=== PATIENT | female | born 1985 | race Caucasian/White ===

== ENCOUNTER → 2022-04-17 14:16 | Outpatient (BNVA) | payer MEDICAID, SELFPAY | PROVIDERS: Visit Provider Podiatrist Foot & Ankle Surgery | DX: M84.374A Stress fracture, right foot, initial encounter for fracture (principal) | CPT/HCPCS: 73630 ==

== ENCOUNTER 2022-05-14 13:13 | Outpatient (CLI) | payer MEDICAID, SELFPAY ==
--- NOTE | 2022-05-14 13:45 | MR_ITS ---
WS: [id number] MRI OF THE RIGHT FOOT WITHOUT AND WITH GADOLINIUM ENHANCEMENT. INDICATION: RIGHT foot injury TECHNIQUE: Axial PD, axial T2, axial T1, coronal PD, coronal T2 fat sat, sagittal T1, sagittal STIR, and multiplanar post gadolinium imaging was obtained with fat saturation technique. FINDINGS: Normal bone marrow signal in the base of 5th metatarsal. Normal bone marrow signal in the c uboid. No edema or avascular necrosis. Normal cuneiforms. Normal navicular. Proximal metatarsals are normal in appearance. . Normal bone marrow signal in the talus and calcaneus. Normal talar dome. Distal Achilles is normal in appearance. Normal peroneal tendon sheaths. Normal peroneus longus and brevis. Normal bone marrow si gnal in the medial and lateral malleolus. Normal deltoid ligament. Normal ATF. Normal extensor and flexor compartment tendons. No abnormal gadolinium enhancement. Normal visualized soft tissues. Normal plantar aponeurosis. No other suspicious findings MR/MR foot RT wo/w con [id number] IMPRESSION: 1. Normal bone marrow signal in the cuboid. 2. Normal bone marrow signal in the tarsal bones. 3. Talus and calcaneus are normal in appearance. No acute fractures. 4. Tiny amount of subchondral cystic change involving the undersurface of the lateral malleolus. Medial and lateral malleolus otherwise normal. 5. Normal peroneal tendon sheath. 6. Distal Achilles is normal in appearance. 7. No other suspicious findings.
[2022-05-14] MEDS: gadobenate dimeglumine 20 mL vial IV (14:26)
== END 2022-05-14 13:14 | disposition home or self-care (01) ==
LOC: RAD 13:15
PROVIDERS: Visit Provider Podiatrist Foot & Ankle Surgery
DX: S99.921A Unspecified injury of right foot, initial encounter (principal); X58.XXXA Exposure to other specified factors, initial encounter
CPT/HCPCS: 73720; A9577

== ENCOUNTER 2022-05-15 10:48 | Outpatient (CLI) | payer MEDICAID, SELFPAY ==
--- NOTE | 2022-05-15 11:00 | MR_ITS ---
WS: [id number] MRI OF THE RIGHT FOOT WITHOUT AND WITH GADOLINIUM ENHANCEMENT. INDICATION: RIGHT ankle injury TECHNIQUE: Sagittal T1, sagittal STIR, axial T2, axial PD, coronal PD, coronal T2 fat sat, axial T1 a nd multiplanar post gadolinium imaging with fat saturation technique. FINDINGS: Normal metatarsals. Normal tarsal metatarsal alignment. Normal bone marrow signal in the 1s t through 5th metatarsals. No acute fractures. Proximal and distal phalanges are normal in appearance. Normal tarsal bones. Normal navicular. Normal talonavicular articulation. Normal visualized soft tissues. Normal cuboid. Normal cuneiforms. Distal peroneal longus and brevis appear normal. Normal visualized extensor and flexor compartment te ndons. No abnormal gadolinium enhancement. Normal midfoot and forefoot plantar soft tissues. Normal d orsal soft tissues. No other suspicious findings. MR/MR foot RT wo/w con [id number] IMPRESSION: 1. No suspicious RIGHT foot findings. 2. Normal bone marrow signal in the tarsal and metatarsal bones. 3. Normal talonavicular articulation. 4. Cuboid and cuneiforms are normal in appearance. 5. No other suspicious findings.
[2022-05-15] MEDS: gadobenate dimeglumine 20 mL vial IV (11:54)
== END 2022-05-15 10:49 | disposition home or self-care (01) ==
LOC: RAD 10:51
PROVIDERS: PCP Family Medicine; Visit Provider Podiatrist Foot & Ankle Surgery
DX: S99.911A Unspecified injury of right ankle, initial encounter (principal); X58.XXXA Exposure to other specified factors, initial encounter
CPT/HCPCS: 73720; A9577

== ENCOUNTER 2022-07-12 07:55 | Outpatient (CLI) | payer MEDICAID, SELFPAY ==
--- NOTE | 2022-07-12 08:02 | MR_ITS ---
WS: [id number] EXAMINATION: MR shoulder RT wo con* [id number] ORDER DATE: 07/12/2022 8:20 AM COMPARISON: None. HISTORY: R ROTATOR CUFF TENDINOPATHY CONTRAST: None. TECHNIQUE: Axial T2 STAR, coronal proton density fat sat, sagittal T2 fat sat, sagittal proton densit y fat sat, axial proton density fat sat, coronal T2 fat sat, and coronal T1 performed. After contrast , axial T1 fat sat, coronal T1 fat sat, and sagittal T1 fat sat were performed. FINDINGS: Mild degenerative arthritis AC joint with mild fluid and edema. Mild downsloping acromion with subacr omial spurring. Impingement on the distal supraspinatus. Distal supraspinatus is intact. Normal infraspinatus. Normal teres minor. Subscapularis tendon appear s intact. Normal biceps tendon in the bicipital groove. Normal biceps labral anchor. Intra-articular biceps tendon appears intact with mild tendinopathy and increased signal abnormality. MR/MR shoulder RT wo con* [id number] IMPRESSION: 1. Mild degenerative arthritis AC joint with mild fluid and edema. 2. Mild downsloping acromion with slight impingement on the distal supraspinat us. Small amount of subacromial/subdeltoid fluid. Distal supraspinatus appears intact. 3. Rotator cuff is otherwise normal in appearance. 4. Intra-articular biceps tendon appears intact. 5. Small amount signal abnormality involving the intra-articular biceps tendon compatible with tendinopathy. 6. No other suspicious findings.
== END 2022-07-12 07:56 | disposition home or self-care (01) ==
LOC: RAD 07:55
PROVIDERS: PCP Family Medicine; Visit Provider Family Medicine
DX: M19.011 Primary osteoarthritis, right shoulder (principal); M67.813 Other specified disorders of tendon, right shoulder
CPT/HCPCS: 73221

== ENCOUNTER 2022-08-11 15:15 | Inpatient (IN) | payer MEDICAID, SELFPAY ==
[2022-08-11] VITALS (69 sets, daily range): BP systolic 114–173; BP diastolic 71–106; PULSE 74–95; RESP 12–25; TEMP 36.8; O2SAT 96–100; BMI 37.8
[2022-08-11 15:25] LABS: Glucose Point of Care 94 mg/dL (70-110)
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
--- NOTE | 2022-08-11 15:35 | ECG_ITS ---
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 Measurements Intervals [place] Rate: 80 P: 28 MD: 109 QRS: 1 QRSD: 92 T: 15 QT: 359 QTc: 415 Interpretive Statements SINUS RHYTHM WITH SHORT MD INTERVAL VOLTAGE CRITERIA FOR LVH [MEETS CRITERIA IN ONE OF: R(aVL), S(V1), R(V5), R(V5/V6)+S(V1)] No previous ECG available for comparison Electronically Signed On 08-12-2022 11:50:22 CDT by Carlos Florentino M.D. [email or web address]
--- NOTE | 2022-08-11 15:35 | XRR_ITS ---
PROCEDURE INFORMATION: Exam: XR Chest Exam date and time: 08/11/2022 4:01 PM Age: 37 years old Clinical indication: Other: Overdose TECHNIQUE: Imaging protocol: Radiologic exam of the chest. Views: 1 view. Other technique: Frontal portable semiupright view of the chest. COMPARISON: MR shoulder RT wo con* [id number] 07/12/2022 8:15 AM FINDINGS: Tubes, catheters and devices: EKG leads are present overlying the chest. Lungs: The lungs are clear bilaterally. The pulmonary vasculature is normal. Pleural spaces: No pleural effusion. No pneumothorax. Heart/Mediastinum: The heart is normal in size and contour. Bones/joints: No acute chest wall abnormality identified. XR/XR chest 1V portable [id number] IMPRESSION: No acute cardiopulmonary abnormality identified.
[2022-08-11 16:12] LABS: Basophils % 0.3 %; Eosinophils # 0.1 10^3/uL (0.0-0.8); Eosinophils % 1.1 %; Hematocrit 41.7 % (37.0-47.0); Hemoglobin 13.7 g/dL (11.5-15.3); Lymphocytes # 2.1 10^3/uL (0.8-4.8); Lymphocytes % 19.7 %; Mean Corpuscular HGB Conc 32.9 g/dL (30.0-36.0); Mean Corpuscular Hemoglobin 29.5 pg (28.0-34.0); Mean Corpuscular Volume 89.9 fl (81-99); Mean Platelet Volume 10.3 fL (7.4-10.4); Monocytes # 0.5 10^3/uL (0.2-0.9); Monocytes % 5.1 %; Neutrophils # 7.68 10^3/uL (1.8-7.7); Neutrophils % 73.4 %; Nucleated Red Blood Cells % 0 %; Platelet Count 298 10^3/cmm (130-400); Red Blood Count 4.64 10^6/uL (4.1-5.3); Red Cell Distribution Width 11.9 % (12.1-15.1); White Blood Count 10.5 10^3/uL (4.0-10.0)
[2022-08-11 16:13] LABS: Add Urine Microscopic? NO; Charge for UA Resulting for Rev
[2022-08-11 16:21] LABS: Urine Appearance Clear (CLEAR); Urine Color Yellow (Yellow); pH Urine 6.5 (5-7)
[2022-08-11 16:22] LABS: Bilirubin Urine Neg (Negative); Blood Urine Neg (Negative); Glucose Urine UA Norm (Normal); Ketones Urine Negative (Negative); Leukocyte Esterase Urine Negative (Negative); Nitrate Urine Negative (Negative); Protein Urine Neg (Negative); Specific Gravity, Urine 1.005 (1.005-1.030); Urobilinogen Urine Norm (Negative)
[2022-08-11 16:24] LABS: HCG Qualitative Urine. Negative (Negative)
[2022-08-11 16:28] LABS: Amphetamines Screen Urine Negative (Negative); Barbiturates Screen Urine Positive (Negative); Benzodiazepines Screen Urine Negative (Negative); Cocaine Screen Urine Negative (Negative); Opiate Screen Urine Negative (Negative); PCP Screen Urine Negative (Negative); THC Screen Urine Negative (Negative)
[2022-08-11 16:45] LABS: Alanine Aminotransferase 44 U/L (0-33); Alkaline Phosphatase 85 U/L (35-105); Anion Gap 15.9 (5-19); Aspartate Amino Transferase 31 U/L (0-32); Blood Urea Nitrogen 8 mg/dL (6-20); Calcium 9.2 mg/dL (8.5-10.5); Carbon Dioxide 26 mmol/L (22-29); Chloride 99 mmol/L (98-107); Globulin 3.6 g/dL (1.3-4.6); Glomerular Filtration Rate 113.8 mL/min (90-130); Glucose 89 mg/dL (65-115); Osmolality Calculated 282 mOsm/kg (285-295); Potassium 3.9 mmol/L (3.5-5.1); Sodium 137 mmol/L (136-145); Thyroid Stimulating Hormone 5.05 uIU/mL (0.27-4.20); Total Bilirubin 0.4 mg/dL (0.15-1.2); Total Protein 7.6 g/dL (6.6-8.7)
--- NOTE | 2022-08-11 16:57 | PC.PHAR ---
PT CAME IN WITH MEDICATION BOTTLES- MOST MEDICATIONS HAVE DUPLICATES MOST ARE 1 TO 2 YEARS OLD ALONG WITH CURRENT FILLS IN [facility]
[2022-08-11 16:58] LABS: Acetaminophen < 5.0 ug/mL (10-30); Alcohol Level < 10 mg/dL (0-10); Salicylate < 0.3 mg/dL (3-10)
[2022-08-11] MEDS: sodium chloride 0.9% 1,000 ML 999 ML IV (16:58)
--- NOTE | 2022-08-11 18:07 | CTR_ITS ---
PROCEDURE INFORMATION: Exam: CT Head Without Contrast Exam date and time: 08/11/2022 6:15 PM Age: 37 years old Clinical indication: Ms, drug overdose, headaches, blurry vision TECHNIQUE: Imaging protocol: Computed tomography of the head without contrast. Radiation optimization: All CT scans at this facility use at least one of these dose optimization techniques: automated exposure control; mA and/or kV adjustment per patient size (includes targeted exams where dose is matched to clinical indication); or iterative reconstruction. REPORTING DATA: Count of CT and Cardiac NM exams in prior 12 months: This patient has received 0 known CTs and 0 known cardiac nuclear medicine studies in the 12 months prior to the current study. COMPARISON: No relevant prior studies available. RADIATION DOSE METRICS: Total DLP (mGy-cm): 1137.38 FINDINGS: Brain: Normal. No hemorrhage. Unremarkable white matter. No mass effect. Cerebral ventricles: No ventriculomegaly. Paranasal sinuses: Visualized sinuses are unremarkable. No fluid levels. Mastoid air cells: Visualized mastoid air cells are well aerated. Bones/joints: Unremarkable. No acute fracture. Soft tissues: Unremarkable. CT/CT head wo con* [id number] IMPRESSION: No acute intracranial abnormality.
--- NOTE | 2022-08-11 18:09 | P.HP_ITS ---
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 She says she took mecobalamin, But it could be methocarbamol she is not sure what it is called. She tells me that she has been very anxious recently, she is not sure how much pills she took, she denies any suicidal ideation, homicidal ideation, denies seeing things are not there. She tells me that she has been going through a lot, she has 2 kids, 12 and 13, she lives with her parents, and attempt to feel better she took a handful of pills. She tells me that she deals with chronic symptoms of headaches, blurry vision, fatigue, malaise, diffuse pain, she is going to see an MS specialist in September in [place] she thinks is the cause of all of her problems. She denies overdosing on aspirin, statin, Celebrex, levothyroxine, metoprolol, Topamax, trazodone.. She told the ER nurse that she started hearing voices in her head, she is tired of all the pain, she want to make it stop. Currently alert awake, following all commands Review of Systems Const: Denies: fever(s) Eyes: Reports: change in vision and blurry vision Card: Denies: chest pain Resp: Denies: dyspnea GI: Denies: abdominal pain : Denies: flank pain or difficulty voiding Neuro: Reports: headache(s) Psych: Reports: anxiety Medications/Allergies Home Medications Medication Instructions Recorded Confirmed Last Taken Type aspirin 81 mg tablet,delayed 81 mg PO DAILY 06/28/22 08/11/22 08/11/22 History release atorvastatin 20 mg tablet 20 mg PO DAILY 06/28/22 08/11/22 08/11/22 History celecoxib 200 mg capsule (Celebrex) 200 mg PO BID 06/28/22 08/11/22 08/11/22 History ergocalciferol (vitamin D2) 1,250 1,250 mcg PO DAILY 06/28/22 08/11/22 08/11/22 History mcg (50,000 unit) capsule gabapentin 300 mg capsule 300 mg PO TID 06/28/22 08/11/22 08/11/22 History levothyroxine 88 mcg capsule 88 mcg PO DAILY 06/28/22 08/11/22 08/11/22 History mecobalamin (vitamin B12) 1,000 1,000 mcg PO DAILY 06/28/22 08/11/22 08/11/22 History mcg chewable tablet metoprolol tartrate 25 mg tablet 25 mg PO DAILY 06/28/22 08/11/22 08/11/22 History ondansetron HCl 4 mg tablet 4 mg PO Q8H 06/28/22 08/11/22 08/11/22 History sucralfate 1 gram tablet 1 g PO BID 06/28/22 08/11/22 08/11/22 History topiramate 50 mg tablet 50 mg PO BID pain 30 days #60 tabs 06/28/22 08/11/22 08/11/22 Rx trazodone 50 mg PO QPM 06/28/22 08/11/22 08/10/22 History Allergies Allergy/AdvReac Type Severity Reaction Status Date / Time glatiramer (copolymer 1) Allergy Severe ALGY-Anaphy Verified 07/30/22 11:15 [From Copaxone] laxis albumin human Allergy Mild ALGY-Swell Verified 07/30/22 11:15 [From Rebif (with albumin)] Lip/Tongue/Throat ibuprofen Allergy Mild ALGY-Swell Verified 07/30/22 11:15 Lip/Tongue/Throat interferon beta-1a Allergy Mild ALGY-Swell Verified 07/30/22 11:15 [From Rebif (with albumin)] Lip/Tongue/Throat PFSH Acute PFSH: Medical History (Updated 08/11/22 @ 18:15 by Venancio Ramirez MD) History of hypothyroidism History of multiple sclerosis Surgical History (Updated 08/11/22 @ 18:14 by Venancio Ramirez MD) History of hysterectomy Family History (Updated 08/11/22 @ 18:14 by Venancio Ramirez MD) Other Diabetes Hypertension Social History Smoking and tobacco status: never smoked Second hand smoke exposure: No Alcohol intake: current Alcohol intake frequency: holidays/special occasions only Alcohol type: beer, wine and hard liquor Vitals/I&O/Wt Last Vital Signs Pulse 78 08/11/22 15:27 Resp 13 08/11/22 15:27 BP 173/106 08/11/22 15:27 Pulse Ox 99 08/11/22 15:27 O2 Del Method Room Air 08/11/22 15:27 Weight last 48 hrs Weight 90.718 kg Physical Exam Const: COMMON NORMALS: no acute distress and patient oriented x3 HENMT: COMMON NORMALS: normocephalic HEAD & SCALP: normocephalic Eye: COMMON NORMALS: Equal, round and reactive pupils present and EOMs intact bilaterally Neck/C-Spine: COMMON NORMALS: no JVD Lymph: LYMPHATIC: no lymphadenopathy noted Resp: COMMON NORMALS: normal respiratory effort, No retractions, No use of accessory muscles and clear to auscultation bilaterally AUSCULTATION: clear to auscultation bilaterally Cardio: COMMON NORMALS: regular rate, regular rhythm, S1 normal heart sound present and S2 normal heart sound present RATE: regular rate RHYTHM: regular rhythm HEART SOUNDS: S1 normal heart sound present and S2 normal heart sound present GI: COMMON NORMALS: Normal to inspection, nondistended, normoactive bowel sounds present, Soft to palpation, non-tender, No hepatosplenomegaly present, no masses and no bruits PALPATION: Yes Soft to palpation : COMMON NORMALS: Yes no CVA tenderness Extremity: COMMON NORMALS: no calf tenderness and no pedal edema Neuro: COMMON NORMALS: patient oriented x3, CN's II-XII intact bilaterally, moves all extremities and no focal motor deficits Psych: COMMON NORMALS: mental status grossly normal Data 08/11/22 15:52 08/11/22 15:52 A&P Assessment and plan (1) Drug overdose: Plan Drug overdose -96-hour hold placed in the emergency room -Concerns for suicidal attempt -She is in a lot of stress, in a lot of pain, is very anxious, is quite teary during my discussion -But she denies any suicidal ideation, denies any homicidal ideation -We will resume home levothyroxine, resume metoprolol -Resume aspirin, statin -Hold Celebrex, hold trazodone hold Topamax -Monitor telemetry monitoring -Monitor respiratory status -Monitor mentation -CT head -Full code -Lovenox for DVT prophylaxis Attestations Medical Necessity Statement*: Patient requires hospitalization, for drug overdose, outpatient with observation Coding Level of Care Code Acute Code for Chg Fwd Diagnoses Drug overdose T50.901A
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
[2022-08-11 18:31] LABS: Creatine Phosphokinase 37 U/L (26-192)
[2022-08-11 19:36] LABS: Chol HDL Ratio 7.61 mg/dL (0.0-4.40); Cholesterol 236 mg/dL (0-200); HDL Cholesterol 31 mg/dL (60-100); LDL Cholesterol Calculated 143 mg/dL (50-129); LDL HDL Ratio 4.61 RATIO (0.00-3.22); Triglycerides 311 mg/dL (0-150)
[2022-08-11] MEDS: enoxaparin 40 mg/0.4 mL Syringe SUBCUT (20:10)
[2022-08-11] MEDS: sodium chloride 0.9% 1,000 ML 75 ML IV (20:11)
[2022-08-11 22:20] LABS: Estmated Average Glucose 100; Hemoglobin A1C 5.1 % (4.0-6.0)
[2022-08-12] VITALS (132 sets, daily range): BP systolic 92–146; BP diastolic 63–92; PULSE 64–92; RESP 5–29; TEMP 36.7–36.9; O2SAT 94–100
[2022-08-12 05:58] LABS: Basophils % 0.4 %; Eosinophils # 0.2 10^3/uL (0.0-0.8); Eosinophils % 1.9 %; Hematocrit 38.9 % (37.0-47.0); Hemoglobin 12.7 g/dL (11.5-15.3); Lymphocytes # 3.7 10^3/uL (0.8-4.8); Lymphocytes % 43.5 %; Mean Corpuscular HGB Conc 32.6 g/dL (30.0-36.0); Mean Corpuscular Hemoglobin 29.4 pg (28.0-34.0); Mean Platelet Volume 10.5 fL (7.4-10.4); Monocytes # 0.6 10^3/uL (0.2-0.9); Monocytes % 7.1 %; Neutrophils # 3.95 10^3/uL (1.8-7.7); Neutrophils % 46.9 %; Nucleated Red Blood Cells % 0 %; Platelet Count 258 10^3/cmm (130-400); Red Blood Count 4.32 10^6/uL (4.1-5.3); Red Cell Distribution Width 11.7 % (12.1-15.1); White Blood Count 8.4 10^3/uL (4.0-10.0)
[2022-08-12 06:24] LABS: Alanine Aminotransferase 36 U/L (0-33); Albumin Level 3.5 g/dL (3.5-5.2); Alkaline Phosphatase 72 U/L (35-105); Anion Gap 12.9 (5-19); Aspartate Amino Transferase 24 U/L (0-32); Blood Urea Nitrogen 7 mg/dL (6-20); Calcium 8.3 mg/dL (8.5-10.5); Carbon Dioxide 25 mmol/L (22-29); Chloride 104 mmol/L (98-107); Globulin 2.8 g/dL (1.3-4.6); Glomerular Filtration Rate 113.8 mL/min (90-130); Glucose 84 mg/dL (65-115); Osmolality Calculated 283 mOsm/kg (285-295); Phosphorus 3.9 mg/dL (2.5-4.5); Potassium 3.9 mmol/L (3.5-5.1); Sodium 138 mmol/L (136-145); Total Bilirubin 0.3 mg/dL (0.15-1.2); Total Protein 6.3 g/dL (6.6-8.7)
[2022-08-12] MEDS: metoprolol tartrate 25 mg Tablet PO (08:15)
[2022-08-12] MEDS: levothyroxine 88 mcg Tablet PO (08:15)
[2022-08-12] MEDS: atorvastatin 40 mg Tablet 20 MG PO (08:15)
[2022-08-12] MEDS: sucralfate 1 gm Tablet PO ×2 (08:15→17:31)
[2022-08-12] MEDS: aspirin 81 mg EC Tablet PO (08:15)
[2022-08-12] MEDS: sodium chloride 0.9% 1,000 ML 75 ML IV (08:17)
--- NOTE | 2022-08-12 09:29 | ECG_ITS ---
[facility] Test Date: 2022-08-12 Pat Name: Diane Castellanos Department: Room: [facility] Gender: Female Physician Assistant Psychiatry: : 1985 Requested By: Venancio Ramirez Order Number: [id number] Elizabeth MD: Carlos Florentino M.D. Measurements Intervals [place] Rate: 67 P: 11 MT: 144 QRS: -4 QRSD: 94 T: 16 QT: 390 QTc: 414 Interpretive Statements SINUS RHYTHM MODERATE VOLTAGE CRITERIA FOR LVH, CONSIDER NORMAL VARIANT [MEETS CRITERIA IN ONE OF: R(aVL), S(V1), R(V5), R(V5/V6)+S(V1)] Compared to ECG 08/11/2022 15:58:13 Short MT interval no longer present Electronically Signed On 08-12-2022 11:48:55 CDT by Carlos Florentino M.D. [id number]
--- NOTE | 2022-08-12 13:57 | PC.NURSE ---
Report called to NPU. Patient to go to room 154-2. Patient belongings and home meds to go with patient. Patient transported to NPU with Security and patient voting machine repairer.
--- NOTE | 2022-08-12 14:45 | P.PN_ITS ---
Subjective Subjective: Patient was seen this morning, she has no complaints, denies chest pain, denies any shortness of breath, denies any suicidal ideation, denies homicidal ideation Vitals/I&O/Wt Last Vital Signs Temp 98.0 F 08/12/22 07:30 Pulse 84 08/12/22 14:08 Resp 12 08/12/22 13:40 BP 142/90 08/12/22 13:40 Pulse Ox 97 08/12/22 13:40 O2 Del Method Room Air 08/12/22 13:40 08/11/22 08/12/22 08/12/22 22:59 06:59 14:59 Intake Total 1300 / 1300 400 / 1700 1267.5 / 1267.5 Balance 1300 / 1300 400 / 1700 1267.5 / 1267.5 Weight last 48 hrs Weight 90.718 kg Physical Exam Const: COMMON NORMALS: no acute distress and patient oriented x3 Resp: COMMON NORMALS: normal respiratory effort, No retractions, No use of accessory muscles and clear to auscultation bilaterally AUSCULTATION: clear to auscultation bilaterally Cardio: COMMON NORMALS: regular rate, regular rhythm, S1 normal heart sound present and S2 normal heart sound present RATE: regular rate RHYTHM: regular rhythm HEART SOUNDS: S1 normal heart sound present and S2 normal heart sound present GI: COMMON NORMALS: Normal to inspection, nondistended, normoactive bowel sounds present and non-tender Extremity: COMMON NORMALS: no pedal edema Neuro: COMMON NORMALS: patient oriented x3 Psych: COMMON NORMALS: mental status grossly normal Data 08/12/22 04:58 08/12/22 04:58 A&P Assessment and plan (1) Drug overdose: Plan Drug overdose -96-hour hold placed in the emergency room -Concerns for suicidal attempt -She is in a lot of stress, in a lot of pain, is very anxious, is quite teary during my discussion -But she denies any suicidal ideation, denies any homicidal ideation -We will resume home levothyroxine, resume metoprolol -Resume aspirin, statin -Hold Celebrex, hold Topamax -Can move to neuropsychiatric unit -Monitor respiratory status -Monitor mentation -Full code -Lovenox for DVT prophylaxis Spoke to psychiatrist, spoke to nursing staff Attestations Medical Necessity Statement*: Patient requires hospitalization for drug overdose, moving to neuropsychiatric unit Diagnoses Drug overdose T50.901A
--- NOTE | 2022-08-12 15:34 | PC.NURSE ---
medication arrived to unit with pt and her belongings accompanied by security an entertainment musician. medication in [facility] clear bag secured with tape and saftey red tape. medication list with pt name inside with medication. placing in medication room [facility].
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
[2022-08-12] MEDS: hyDROXYzine 25 mg Capsule 50 MG PO (22:47)
[2022-08-12] MEDS: gabapentin 300 mg Capsule PO (22:47)
[2022-08-12] MEDS: trazodone 50 mg Tablet PO (22:47)
[2022-08-13] MEDS: aspirin 81 mg EC Tablet PO (09:55)
[2022-08-13] MEDS: sucralfate 1 gm Tablet PO ×2 (09:55→18:31)
[2022-08-13] MEDS: escitalopram 10 mg Tablet PO (09:55)
[2022-08-13] MEDS: metoprolol tartrate 25 mg Tablet PO (09:55)
[2022-08-13] MEDS: levothyroxine 88 mcg Tablet PO (09:55)
[2022-08-13] MEDS: atorvastatin 40 mg Tablet 20 MG PO (09:56)
[2022-08-13] MEDS: gabapentin 300 mg Capsule PO ×3 (09:58→20:40)
[2022-08-13] MEDS: artificial tears Op Soln 15 mL Btl 1 DROP EYE-BOTH ×3 (10:02→21:16)
--- NOTE | 2022-08-13 10:05 | PC.NURSE ---
Pt reports usually takes her Vit B 12 by injection on Tuesdays. Oral declined at this time. Will adjust the order after clarifying with MD.
[2022-08-13 14:00] VITALS: BP 134/77; PULSE 92; RESP 20; TEMP 37.1; O2SAT 98
--- NOTE | 2022-08-13 17:51 | W.PM.NPUPNS ---
Subjective NPU Subjective: Patient is a 37-year-old white female admitted after an overdose on multiple medications with increased depression and suicidal thoughts. Patient had reported no suicidal thoughts at this time. She had reported feeling overwhelmed and was struck by her mother's calcinosis when stating that patient did not need to moved to [place] when her parents who she had been living with at plan to moved there. She had reported chronically struggling with stress and states that she had been in therapy before including cognitive behavioral therapy but stated that the continued negative thoughts were overwhelming to her and reported that she needed more help with managing her mood and managing her medical illness. She reported being overwhelmed and upset that she was unable to work due to her MS. She had described having some sensitivity to medications. She reported some intense feelings of hopelessness just prior to taking the pills but stated that she was motivated to get better. She reported having difficulties with sleep continuity disruption as well as difficulties with managing her chronic worry. Mental Status Exam MSE Comments: Patient is a casually dressed white female who was pleasant and cooperative on interview. She appeared in mild distress. Her gait was adequate her hygiene was adequate. There was no evidence of any abnormal involuntary motor movements tics or tremors appreciated. Her speech was normal in regards to rate rhythm and prosody. Her thought process was linear logical and goal-directed. Her thought content showed no evidence of active homicidal or suicidal ideation although she did report that she had taken the pills out of frustration with a concern of not wanting to be around anymore. There was no clear evidence of delusional thinking. She did not appear to be responding to internal stimuli. She was alert and oriented person place and time. Her attention was fair. Her insight was poor. Her judgment was poor. Her impulse control appeared guarded and limited at this time. Her mood was described as depressed. Her affect was anxious and restricted in range. Vitals/I&O/Wt Last Vital Signs Temp 98.1 F 08/12/22 19:54 Pulse 82 08/12/22 19:54 Resp 18 08/12/22 19:54 BP 124/81 08/12/22 19:54 Pulse Ox 97 08/12/22 19:54 O2 Del Method Room Air 08/12/22 19:54 Weight last 48 hrs Weight 90.718 kg Data NPU 08/12/22 04:58 08/12/22 04:58 A&P Assessment and plan (1) Major depressive disorder: (2) Suicide attempt by multiple drug overdose: Plan Patient is a 37-year-old white female no previous history of inpatient hospitalization admitted with worsening depression with significant medical problems that are chronic after an overdose. The patient was agreeable to consideration for medications to target depression. 1.? ?Engage? patient in individual ,milieu, and group therapy ?2. ? We will attempt to gather collateral information from previous providers-request records. Continue Lexapro 10mg daily to target depression and anxiety. Trazodone at night for insomnia. ?3. ? TO-15 minute checks on the unit. ?4.? Recommend sober living treatment at the highest level of care to which the patient is willing to commit. Involuntary Hold Information 96 Hour Hold: 96 Hour Involuntary Admission: Yes 96 Hour Hold Ending Date: 08/17/22 96 Hour Hold Ending Time: 00:01 Attestations NPU Medical Necessity Statement*: Inpatient hospitalization is medically necessary and deemed to be the clinically appropriate intervention at this time. We will monitor and make changes to medications as indicated. Her likely length of stay is 5 to 7 days. Coding Level of Care Code Acute Code for [facility] Fwd Diagnoses Major depressive disorder F32.9 Suicide attempt by multiple drug overdose T50.912A
[2022-08-13] MEDS: trazodone 50 mg Tablet PO (20:41)
[2022-08-13] MEDS: hyDROXYzine 25 mg Capsule 50 MG PO (20:43)
[2022-08-13 21:05] VITALS: BP 117/79; PULSE 90; RESP 20; TEMP 37.1; O2SAT 93
[2022-08-14 06:00] VITALS: BP 102/56; PULSE 80; RESP 18; TEMP 36.4; O2SAT 97
[2022-08-14] MEDS: artificial tears Op Soln 15 mL Btl 1 DROP EYE-BOTH ×3 (07:05→19:39)
[2022-08-14] MEDS: gabapentin 300 mg Capsule PO ×3 (09:13→21:12)
[2022-08-14] MEDS: levothyroxine 88 mcg Tablet PO (09:13)
[2022-08-14] MEDS: atorvastatin 40 mg Tablet 20 MG PO (09:13)
[2022-08-14] MEDS: aspirin 81 mg EC Tablet PO (09:13)
[2022-08-14] MEDS: sucralfate 1 gm Tablet PO ×2 (09:14→18:06)
[2022-08-14] MEDS: escitalopram 10 mg Tablet PO (09:15)
[2022-08-14] MEDS: metoprolol tartrate 25 mg Tablet PO (09:18)
[2022-08-14 09:19] VITALS: BP 129/88; PULSE 103
[2022-08-14] MEDS: acetaminophen 325 mg Tablet 650 MG PO (12:10)
[2022-08-14 14:00] VITALS: BP 118/74; PULSE 88; RESP 16; TEMP 36.9; O2SAT 98
--- NOTE | 2022-08-14 18:29 | P.NPUPN_ITS ---
Subjective NPU Subjective: Patient is a 37-year-old white female admitted after an overdose on multiple medications with increased depression and suicidal thoughts. She reported having less suicidal thoughts at this time. She had stated that she was likely to move to [place] with the rest of her family in December. She had reported that she needed further aid in managing her medical problems as well as her mental health issues. She had reported struggles with coping with depression and anxiety. She had reported no side effects initially from her Lexapro. Mental Status Exam MSE Comments: Patient is a casually dressed white female who was pleasant and cooperative on interview. She appeared in mild distress. Her gait was adequate her hygiene was adequate. There was no evidence of any abnormal involuntary motor movements tics or tremors appreciated. Her mood was described as better. Her affect was brighter today and mood-congruent. Her speech was normal in regards to rate rhythm and prosody. Her thought process was linear logical and goal-directed. Her thought content showed no evidence of active homicidal or suicidal ideation There was no clear evidence of delusional thinking. She did not appear to be responding to internal stimuli. She was alert and oriented person place and time. Her attention was fair. Her insight was poor. Her judgment was poor. Her impulse control appeared guarded and limited at this time. Vitals/I&O/Wt Last Vital Signs Temp 98.5 F 08/14/22 14:00 Pulse 88 08/14/22 14:00 Resp 16 08/14/22 14:00 BP 118/74 08/14/22 14:00 Pulse Ox 98 08/14/22 14:00 O2 Del Method Room Air 08/14/22 14:00 Data NPU 08/12/22 04:58 08/12/22 04:58 A&P Assessment and plan (1) Major depressive disorder: (2) Suicide attempt by multiple drug overdose: Plan Patient is a 37-year-old white female no previous history of inpatient hospitalization admitted with worsening depression with significant medical problems that are chronic after an overdose. The patient was agreeable to consideration for medications to target depression. 1.? ?Engage? patient in individual ,milieu, and group therapy ?2. ? We will attempt to gather collateral information from previous providers- request records. Continue Lexapro 10mg daily to target depression and anxiety. Trazodone at night for insomnia. ?3. ? TO-15 minute checks on the unit. ?4.? Recommend sober living treatment at the highest level of care to which the patient is willing to commit. Involuntary Hold Information 96 Hour Hold: 96 Hour Involuntary Admission: Yes 96 Hour Hold Ending Date: 08/17/22 96 Hour Hold Ending Time: 00:01 Attestations NPU Medical Necessity Statement*: Inpatient hospitalization is medically necessary and deemed to be the clinically appropriate intervention at this time. We will monitor and make changes to medications as indicated. Her likely length of stay is 3-5 days. Coding Level of Care Code Acute Code for g Fwd Diagnoses Major depressive disorder F32.9 Suicide attempt by multiple drug overdose T50.912A
[2022-08-14] MEDS: trazodone 100 mg Tablet PO (21:12)
[2022-08-14] MEDS: hyDROXYzine 25 mg Capsule 50 MG PO (21:12)
[2022-08-14 22:00] VITALS: BP 136/93; PULSE 105; RESP 15; TEMP 37.4; O2SAT 97
[2022-08-14] MEDS: diphenhydrAMINE 50 mg/mL SDV 1mL IM (22:22)
--- NOTE | 2022-08-14 22:24 | PC.NURSE ---
0-pt came to nurses station and reports she feels flush, clammy, and itchy on my abdomen and arms . pt reports that she is also having intermittent nausea. PRN benadryl given. VSS at this time. BG 118 will continue to monitor.
[2022-08-14 22:30] LABS: Glucose Point of Care 118 mg/dL (70-110)
[2022-08-15 06:00] VITALS: RESP 16
[2022-08-15] MEDS: gabapentin 300 mg Capsule PO ×3 (08:00→20:37)
[2022-08-15] MEDS: levothyroxine 88 mcg Tablet PO (08:00)
[2022-08-15] MEDS: escitalopram 10 mg Tablet PO (08:00)
[2022-08-15] MEDS: aspirin 81 mg EC Tablet PO (08:00)
[2022-08-15] MEDS: metoprolol tartrate 25 mg Tablet PO (08:00)
[2022-08-15] MEDS: atorvastatin 40 mg Tablet 20 MG PO (08:01)
[2022-08-15] MEDS: sucralfate 1 gm Tablet PO ×2 (08:01→17:30)
[2022-08-15 14:00] VITALS: BP 134/93; PULSE 89; RESP 18; TEMP 36.6; O2SAT 96
--- NOTE | 2022-08-15 17:22 | P.NPUPN_ITS ---
Subjective NPU Subjective: Patient is a 37-year-old white female admitted after an overdose on multiple medications with increased depression and suicidal thoughts. She had reported a history of depression that continued but reported that she was not feeling suicidal. She had reported improved energy though she stated that she had some difficulties with feeling more sick when taking her nighttime sleep med ication. Patient had reported an extended history of autoimmune disease but reported that she was working on trying to find better means of managing her stress and anxiety as it appeared to lead to flareups with her autoimmune disease. She had been able to attend groups. She was compliant on the milieu and reported adequate appetite. She had reported no side effects from the Lexapro at this time. She had reported desire to continue with psychotherapy on an outpatient basis once she is discharged. Mental Status Exam MSE Comments: Patient is a casually dressed white female who was pleasant and cooperative on interview. She appeared in mild distress. Her gait was adequate her hygiene was adequate. There was no evidence of any abnormal involuntary motor movements tics or tremors appreciated. Her mood was described as better. Her affect was brighter today and mood-congruent. Her speech was normal in regards to rate rhythm and prosody. Her thought process was linear logical and goal-directed. Her thought content showed no evidence of active homicidal or suicidal ideation There was no clear evidence of delusional thinking. She did not appear to be responding to internal stimuli. She was alert and oriented person place and time. Her attention was fair. Her insight was improving. Her judgment was poor. Her impulse control appeared guarded and limited at this time. Vitals/I&O/Wt Last Vital Signs Temp 97.9 F 08/15/22 14:00 Pulse 89 08/15/22 14:00 Resp 18 08/15/22 14:00 BP 134/93 08/15/22 14:00 Pulse Ox 96 08/15/22 14:00 O2 Del Method Room Air 08/14/22 22:00 Data NPU 08/12/22 04:58 08/12/22 04:58 A&P Assessment and plan (1) Major depressive disorder: (2) Suicide attempt by multiple drug overdose: Plan Patient is a 37-year-old white female no previous history of inpatient hospital ization admitted with worsening depression with significant medical problems that are chronic after an overdose. The patient was agreeable to consideration for medications to target depression. 1.? ?Engage? patient in individual ,milieu, and group therapy ?2. ? We will attempt to gather collateral information from previous providers- request records. Increase Lexapro to 20mg daily to target depression and anxiety. Discontinue trazodone. ?3. ? TO-15 minute checks on the unit. ?4.? Recommend sober living treatment at the highest level of care to which the patient is willing to commit. Involuntary Hold Information 96 Hour Hold: 96 Hour Involuntary Admission: Yes 96 Hour Hold Ending Date: 08/17/22 96 Hour Hold Ending Time: 00:01 Attestations NPU Medical Necessity Statement*: Inpatient hospitalization is medically necessary and deemed to be the clinically appropriate intervention at this time. We will monitor and make changes to medications as indicated. Her likely length of stay is 1-2 days. Coding Level of Care Code Acute Code for [facility] Fwd Diagnoses Major depressive disorder F32.9 Suicide attempt by multiple drug overdose T50.912A
[2022-08-15] MEDS: hyDROXYzine 25 mg Capsule 50 MG PO (20:37)
[2022-08-15 22:00] VITALS: BP 125/78; PULSE 106; RESP 17; TEMP 36.8; O2SAT 98
[2022-08-16 05:54] VITALS: RESP 18
[2022-08-16] MEDS: atorvastatin 40 mg Tablet 20 MG PO (09:31)
[2022-08-16] MEDS: aspirin 81 mg EC Tablet PO (09:31)
[2022-08-16] MEDS: levothyroxine 88 mcg Tablet PO (09:32)
[2022-08-16] MEDS: metoprolol tartrate 25 mg Tablet PO (09:32)
[2022-08-16] MEDS: escitalopram 10 mg Tablet 20 MG PO (09:32)
[2022-08-16] MEDS: gabapentin 300 mg Capsule PO (09:32)
[2022-08-16] MEDS: sucralfate 1 gm Tablet PO (09:32)
[2022-08-16] MEDS: diphenhydrAMINE 50 mg Capsule PO (10:26)
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
[2022-08-16 11:34] VITALS: BP 125/78; PULSE 106; RESP 18; TEMP 36.8; O2SAT 98
== END 2022-08-16 13:08 | disposition home or self-care (01) | DRG 881 ==
LOC: ER 17:08 → ICU 08-12 08:45 → NP 08-12 23:18 → ICU 08-13 06:55
PROVIDERS: Admitting Provider Family Medicine; Emergency Provider Emergency Medicine; PCP Family Medicine; Visit Provider Psychiatry & Neurology Psychiatry
DX: F32.9 Major depressive disorder, single episode, unspecified (principal); D68.00 Von Willebrand disease, unspecified; R45.851 Suicidal ideations; F41.9 Anxiety disorder, unspecified; T42.6X2A Poisoning by other antiepileptic and sedative-hypnotic drugs, intentional self-harm, initial encounter; T45.8X2A Poisoning by other primarily systemic and hematological agents, intentional self-harm, initial encounter; T42.3X2A Poisoning by barbiturates, intentional self-harm, initial encounter; T42.8X2A Poisoning by antiparkinsonism drugs and other central muscle-tone depressants, intentional self-harm, initial encounter; G35 Multiple sclerosis; G90.A Postural orthostatic tachycardia syndrome [POTS]; E03.9 Hypothyroidism, unspecified; B00.9 Herpesviral infection, unspecified; E78.00 Pure hypercholesterolemia, unspecified; G43.909 Migraine, unspecified, not intractable, without status migrainosus; G89.29 Other chronic pain; M79.7 Fibromyalgia; Z62.810 Personal history of physical and sexual abuse in childhood; Z79.82 Long term (current) use of aspirin; Z59.7 Insufficient social insurance and welfare support; Z56.0 Unemployment, unspecified; Z59.89 Other problems related to housing and economic circumstances; Z79.899 Other long term (current) drug therapy; Z91.410 Personal history of adult physical and sexual abuse
CPT/HCPCS: 36415; 36416; 70450; 71045; 80053; 80061; 80306; 80307; 81003; 81025; 82550; 82962; 83036; 83735; 84100; 84443; 85025; 93005; 94664; 96360; 96372; 97150; 97165; 99285; G0378; J1200; J1650; J7030; Q0163

== ENCOUNTER → 2022-08-27 10:58 | Outpatient (BNVA) | payer MEDICAID, SELFPAY | PROVIDERS: PCP Family Medicine; Visit Provider Internal Medicine Rheumatology | DX: M19.90 Unspecified osteoarthritis, unspecified site (principal); M45.6 Ankylosing spondylitis lumbar region; G35 Multiple sclerosis; Z71.85 Encounter for immunization safety counseling; Z11.59 Encounter for screening for other viral diseases; Z79.899 Other long term (current) drug therapy | CPT/HCPCS: 36415; 73130; 73562; 73630; 80076; 82306; 82565; 85025; 85651; 86038; 86140; 86200; 86431; 86480; 86704; 86803; 86812; 87340 ==

== ENCOUNTER 2022-10-01 22:02 | Emergency (ER) | payer MEDICAID, SELFPAY ==
[2022-10-01 22:14] VITALS: BP 118/77; PULSE 127; RESP 18; TEMP 37.6; O2SAT 96; BMI 40.0
--- NOTE | 2022-10-01 22:24 | XRR_ITS ---
PROCEDURE INFORMATION: Exam: XR Chest Exam date and time: 10/01/2022 10:40 PM Age: 37 years old Clinical indication: Other: Dizziness; Additional info: Fever TECHNIQUE: Imaging protocol: Radiologic exam of the chest. Views: 1 view. COMPARISON: CR XR chest 1V portable [id number] 08/11/2022 4:01 PM FINDINGS: Lungs: No CHF/pulmonary edema. Poor inspiration somewhat limits evaluation, especially of the lung bases. Visible lungs appear essentially clear. Pleural spaces: No visible pneumothorax. No definite pleural fluid. Heart/Mediastinum: Heart size is within normal limits. Bones/joints: No significant acute finding. XR/XR chest 1V portable [id number] IMPRESSION: 1. No definite pneumonia or CHF. 2. Other findings discussed above.
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
--- NOTE | 2022-10-01 22:56 | ED_ITS ---
HPI - Dizziness General: Chief Complaint: Dizziness Stated Complaint: high bp Time Seen by Provider: 10/01/22 22:11 Source: patient Mode of arrival: ambulatory Limitations: no limitations History of Present Illness: HPI Narrative: 37-year-old female states that throughout the day today she states she is just not felt right. She states she had a headache she had nausea vomiting with body aches and a low-grade fever. She states she has had palpitations with tachycardia. She states she has had 2 syncopal episodes. She rates her headache a 6 out of 10 currently. Denies any cough or abdominal pain. She denies any worsening improving factors. Associated symptoms: Reports chills, headache(s), nausea and vomiting; Denies chest pain Review of Systems Const: Reports: fever(s), chills and body aches; Denies: change in appetite Eyes: Denies: blurry vision or eye discomfort ENMT: Denies: throat pain or dental pain Card: Denies: chest pain Resp: Denies: dyspnea GI: Reports: nausea and vomiting; Denies: abdominal pain or diarrhea Musc: Denies: neck pain or back pain Skin/Breast: Denies: rash Neuro: Reports: headache(s) PFSH ED PFSH: Medical History Adult hypothyroidism High risk medication use History of hypercholesterolemia History of hypothyroidism History of multiple sclerosis Immunization counseling Inflammatory arthritis Insomnia Joint pain Major depressive disorder, recurrent, mild Nerve pain POTS (postural orthostatic tachycardia syndrome) Psychiatric care Surgical History History of hysterectomy Family History Other Diabetes Hypertension Denies family history of Rheumatoid arthritis Social History Smoking and tobacco status: never smoked Second hand smoke exposure: No Alcohol intake: current Alcohol intake frequency: holidays/special occasions only Alcohol type: beer, wine and hard liquor Substance/Drug Use: never Physical Exam Const: COMMON NORMALS: no acute distress, patient oriented x3 and healthy appearing HENMT: COMMON NORMALS: normocephalic and atraumatic HEAD & SCALP: normocephalic and atraumatic Eye: COMMON NORMALS: conjunctivae normal CONJUNCTIVA: Yes conjunctivae normal Neck/C-Spine: COMMON NORMALS: full ROM, supple and no meningeal signs Chest: COMMONS NORMALS: normal inspection of the chest and normal palpation of entire chest wall Resp: COMMON NORMALS: normal respiratory effort, No retractions, No use of accessory muscles and clear to auscultation bilaterally AUSCULTATION: clear to auscultation bilaterally Cardio: COMMON NORMALS: regular rhythm and No murmurs present (Cardio) RATE: tachycardic RHYTHM: regular rhythm GI: COMMON NORMALS: Normal to inspection, nondistended, normoactive bowel sounds present, Soft to palpation, non-tender and no masses PALPATION: Yes Soft to palpation Extremity: COMMON NORMALS: normal to inspection and full ROM Neuro: COMMON NORMALS: patient oriented x3, moves all extremities and no focal motor deficits MENINGEAL SIGNS: Yes no meningeal signs Psych: COMMON NORMALS: mental status grossly normal, Normal thought process present and cooperative THOUGHT PROCESS: Normal thought process present Skin: COMMON NORMALS: no rashes or lesions noted and no wounds GENERAL SKIN EXAM: no rashes or lesions noted Course Vital Signs: Vital signs: Vital Signs Temperature 99.7 F H 10/01/22 22:14 Pulse Rate 95 10/02/22 01:00 Respiratory Rate 15 10/02/22 01:00 Blood Pressure 134/86 10/02/22 01:00 Pulse Oximetry 98 10/02/22 01:00 Oxygen Delivery Me thod Room Air 10/02/22 01:00 MDM - Dizziness Medical Decision Making Patient presents here with vomiting along with syncopal episode and headache she has no signs of meningitis blood work here is normal head CT is normal as well she feels much improved here after IV fluids likely has a viral illness we will prescribe her Reglan for home she is to follow-up with PCP and return if worsening she understands agrees to plan. Medical Records I reviewed the patient's medical records. Lab Data I reviewed the patient's lab results. 10/01/22 22:50 10/01/22 22:50 Radiology Impressions Chest X-Ray 10/01/22 22:24 IMPRESSION: 1. No definite pneumonia or CHF. 2. Other findings discussed above. Head CT 10/01/22 22:53 IMPRESSION: 1. No acute intracranial hemorrhage or mass effect. 2. No definite acute infarct by CT, see above. 3. Other findings discussed above. Laboratory Results WBC 10.3 10^3/uL (4.0-10.0) H 10/01/22 22:50 RBC 5.24 10^6/uL (4.1-5.3) 10/01/22 22:50 Hgb 15.4 g/dL (11.5-15.3) H 10/01/22 22:50 Hct 46.0 % (37.0-47.0) 10/01/22 22:50 MCV 87.8 fl (81-99) 10/01/22 22:50 MCH 29.4 pg (28.0-34.0) 10/01/22 22:50 MCHC 33.5 g/dL (30.0-36.0) 10/01/22 22:50 RDW 11.4 % (12.1-15.1) L 10/01/22 22:50 Plt Count 318 10^3/cmm (130-400) 10/01/22 22:50 MPV 9.9 fL (7.4-10.4) 10/01/22 22:50 Neut % (Auto) 86.8 % 10/01/22 22:50 Lymph % (Auto) 7.1 % 10/01/22 22:50 [place] % (Auto) 4.7 % 10/01/22 22:50 Eos % (Auto) 0.8 % 10/01/22 22:50 Baso % (Auto) 0.3 % 10/01/22 22:50 Neut # (Auto) 8.95 10^3/uL (1.8-7.7) H 10/01/22 22:50 Lymph # (Auto) 0.7 10^3/uL (0.8-4.8) L 10/01/22 22:50 [place] # (Auto) 0.5 10^3/uL (0.2-0.9) 10/01/22 22:50 Eos # (Auto) 0.1 10^3/uL (0.0-0.8) 10/01/22 22:50 Baso # (Auto) 0.0 10^3/uL (0.0-0.1) 10/01/22 22:50 Nucleated RBC % (auto) 0 % 10/01/22 22:50 Nucleated RBCs # 0.0 /100WBC 10/01/22 22:50 Sodium 136 mmol/L (136-145) 10/01/22 22:50 Potassium 4.1 mmol/L (3.5-5.1) 10/01/22 22:50 Chloride 97 mmol/L (98-107) L 10/01/22 22:50 Carbon Dioxide 25 mmol/L (22-29) 10/01/22 22:50 Anion Gap 18.1 (5-19) 10/01/22 22:50 BUN 10 mg/dL (6-20) 10/01/22 22:50 Creatinine 0.7 mg/dL (0.5-0.9) 10/01/22 22:50 GFR Calculation 95.2 mL/min (90-130) 10/01/22 22:50 Glucose 149 mg/dL (65-115) H 10/01/22 22:50 POC Glucose 142 mg/dL (70-110) H 10/01/22 23:39 Calculated Osmolality 284 mOsm/kg (285-295) L 10/01/22 22:50 Calcium 9.9 mg/dL (8.5-10.5) 10/01/22 22:50 Total Bilirubin 0.6 mg/dL (0.15-1.2) 10/01/22 22:50 AST 45 U/L (0-32) H 10/01/22 22:50 ALT 59 U/L (0-33) H 10/01/22 22:50 Alkaline Phosphatase 107 U/L (35-105) H 10/01/22 22:50 Total Protein 8.3 g/dL (6.6-8.7) 10/01/22 22:50 Albumin 4.5 g/dL (3.5-5.2) 10/01/22 22:50 Globulin 3.8 g/dL (1.3-4.6) 10/01/22 22:50 Lipase 25 U/L (13-60) 10/01/22 22:50 TSH 5.05 uIU/mL (0.27-4.20) H 10/01/22 22:50 HCG, Qual Negative (Negative) 10/01/22 22:50 Urine Color Colorless (Yellow) 10/01/22 23:50 Urine Appearance Clear (CLEAR) 10/01/22 23:50 Urine pH 7 (5-7) 10/01/22 23:50 Ur Specific [place] 1.010 (1.005-1.030) 10/01/22 23:50 Urine Protein Neg (Negative) 10/01/22 23:50 Urine Glucose (UA) Norm (Normal) 10/01/22 23:50 Urine Ketones Negative (Negative) 10/01/22 23:50 Urine Blood Neg (Negative) 10/01/22 23:50 Urine Nitrate Negative (Negative) 10/01/22 23:50 Urine Bilirubin Neg (Negative) 10/01/22 23:50 Urine Urobilinogen Neg mg/dL (Negative) 10/01/22 23:50 Ur Leukocyte Esterase Negative (Negative) 10/01/22 23:50 SARS-CoV-2 Ag (Rapid) negative (Negative) 10/01/22 23:34 EKG Data EKG 1: I personally reviewed and interpreted this EKG as follows: EKG interpretation date: 10/01/22 EKG interpretation time: 23:34 Interpretation: sinus tach hr [address] or t wave abnormalities qrs 140 qtc 89 Discharge Plan Discharge Patient Disposition: Home Clinical Impression: Vomiting, Headache, Syncope Condition: Stable Prescriptions: New Reglan 10 mg tablet 10 mg PO Q6H PRN (Reason: nausea and vomiting) Qty: 20 0RF No Action aspirin 81 mg tablet,delayed release (DR/EC) 81 mg PO DAILY ondansetron HCl 4 mg tablet 4 mg PO Q8H sucralfate 1 gram tablet 1 g PO BID atorvastatin 20 mg tablet 20 mg PO DAILY celecoxib [Celebrex] 200 mg capsule 200 mg PO BID mecobalamin (vitamin B12) 1,000 mcg tablet,chewable 1,000 mcg PO DAILY metoprolol tartrate 25 mg tablet 25 mg PO DAILY levothyroxine 88 mcg capsule 88 mcg PO DAILY ergocalciferol (vitamin D2) 1,250 mcg (50,000 unit) capsule 1,250 mcg PO DAILY gabapentin 300 mg capsule 300 mg PO TID zolpidem [Ambien] 5 mg tablet 5 mg PO .HS Qty: 30 0RF bupropion HCl [Wellbutrin XL] 150 mg tablet extended release 24 hr 150 mg PO QAM hydroxychloroquine 200 mg tablet 200 mg PO BID Qty: 60 3RF Rx Instructions: Take 1 tab twice a day Clear Eyes Cooling Comfort 0.03-0.5 % Drops 2 drp OPHTHALMIC (EYE) PRN PRN (Reason: eye irritation) Discharge Orders: Discharge ED (Routine); Ordered 10/02/22 Ordered By: Vladimir Rojas Referrals: Han Irby MD [Primary Care Provider] - 1-3 days Discharge Diet: Advance as tolerated Discharge Activity: Resume usual activity Patient Instructions: Syncope (ED), Acute Nausea and Vomiting (ED), General Headache (ED) Coding Level of Care Code ED 4 Year Olds Preschool Teacher for Margarette Moise
[2022-10-01 23:00] LABS: Basophils % 0.3 %; Eosinophils # 0.1 10^3/uL (0.0-0.8); Eosinophils % 0.8 %; Hemoglobin 15.4 g/dL (11.5-15.3); Lymphocytes # 0.7 10^3/uL (0.8-4.8); Lymphocytes % 7.1 %; Mean Corpuscular HGB Conc 33.5 g/dL (30.0-36.0); Mean Corpuscular Hemoglobin 29.4 pg (28.0-34.0); Mean Corpuscular Volume 87.8 fl (81-99); Mean Platelet Volume 9.9 fL (7.4-10.4); Monocytes # 0.5 10^3/uL (0.2-0.9); Monocytes % 4.7 %; Neutrophils # 8.95 10^3/uL (1.8-7.7); Neutrophils % 86.8 %; Nucleated Red Blood Cells % 0 %; Platelet Count 318 10^3/cmm (130-400); Red Blood Count 5.24 10^6/uL (4.1-5.3); Red Cell Distribution Width 11.4 % (12.1-15.1); White Blood Count 10.3 10^3/uL (4.0-10.0)
[2022-10-01 23:11] LABS: HCG, Serum Qual Negative (Negative)
[2022-10-01] MEDS: sodium chloride 0.9% 1,000 ML 999 ML IV ×2 (23:26→23:27)
[2022-10-01 23:27] LABS: Alanine Aminotransferase 59 U/L (0-33); Albumin Level 4.5 g/dL (3.5-5.2); Alkaline Phosphatase 107 U/L (35-105); Anion Gap 18.1 (5-19); Aspartate Amino Transferase 45 U/L (0-32); Blood Urea Nitrogen 10 mg/dL (6-20); Calcium 9.9 mg/dL (8.5-10.5); Carbon Dioxide 25 mmol/L (22-29); Chloride 97 mmol/L (98-107); Globulin 3.8 g/dL (1.3-4.6); Glomerular Filtration Rate 95.2 mL/min (90-130); Glucose 149 mg/dL (65-115); Lipase 25 U/L (13-60); Osmolality Calculated 284 mOsm/kg (285-295); Potassium 4.1 mmol/L (3.5-5.1); Sodium 136 mmol/L (136-145); Thyroid Stimulating Hormone 5.05 uIU/mL (0.27-4.20); Total Bilirubin 0.6 mg/dL (0.15-1.2); Total Protein 8.3 g/dL (6.6-8.7)
[2022-10-01] MEDS: ondansetron 2 mg/ML SDV 2 mL 4 MG IVP (23:28)
[2022-10-01] MEDS: acetaminophen 325 mg Tablet 650 MG PO (23:28)
[2022-10-01 23:30] VITALS: BP 120/76; PULSE 113; O2SAT 97
[2022-10-01] MEDS: ketorolac 30 mg/mL INJ IVP (23:30)
--- NOTE | 2022-10-01 23:34 | ECG_ITS ---
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 Measurements Intervals [place] Rate: 110 P: 48 OK: 140 QRS: 9 QRSD: 89 T: 19 QT: 313 QTc: 423 Interpretive Statements SINUS TACHYCARDIA MINIMAL VOLTAGE CRITERIA FOR LVH, CONSIDER NORMAL VARIANT [MEETS CRITERIA IN ONE OF: R(aVL), S(V1), R(V5), R(V5/V6)+S(V1)] ABNORMAL RHYTHM ECG Compared to ECG 08/12/2022 09:29:24 Sinus rhythm no longer present Electronically Signed On 10-02-2022 5:48:26 CDT by Felecia Feliciano M.D. [id number]
[2022-10-01 23:43] LABS: Glucose Point of Care 142 mg/dL (70-110)
[2022-10-01 23:55] LABS: Add Urine Microscopic? NO; Charge for UA Resulting for Rev
[2022-10-01 23:57] LABS: Bilirubin Urine Neg (Negative); Blood Urine Neg (Negative); Glucose Urine UA Norm (Normal); Ketones Urine Negative (Negative); Leukocyte Esterase Urine Negative (Negative); Nitrate Urine Negative (Negative); Protein Urine Neg (Negative); Urine Appearance Clear (CLEAR); Urine Color Colorless (Yellow); Urobilinogen Urine Neg (Negative); pH Urine 7 (5-7)
[2022-10-02 00:02] LABS: SARS Covid-2 Antigen negative (Negative)
[2022-10-02 00:03] VITALS: BP 147/101; PULSE 110; O2SAT 97
[2022-10-02] MEDS: diphenhydrAMINE 50 mg/mL SDV 1mL IVP (00:05)
[2022-10-02 01:00] VITALS: BP 134/86; PULSE 95; RESP 15; O2SAT 98
[2022-10-02] MEDS: metoclopramide 5 mg/mL SDV 2 mL IVP (01:17)
== END 2022-10-02 01:38 | disposition home or self-care (01) ==
PROVIDERS: Emergency Provider Emergency Medicine; PCP Family Medicine
DX: R51.9 Headache, unspecified (principal); R11.10 Vomiting, unspecified; R55 Syncope and collapse; R00.0 Tachycardia, unspecified
CPT/HCPCS: 36416; 70450; 71045; 80053; 81003; 82962; 83690; 84443; 84703; 85025; 87426; 93005; 96361; 96374; 96375; 99285; J1200; J1885; J2405; J2765; J7030